=== PATIENT | male | born 1995 | race Caucasian/White ===

== ENCOUNTER 2021-05-01 16:17 | Emergency (ER) | payer BC, OTHER ==
[2021-05-01] MEDS ORDERED: Acetaminophen 325 MG Tab PO ONE (17:32)
[2021-05-01] MEDS ORDERED: Acetaminophen 500 MG Tab PO ONE (17:56)
--- NOTE | 2021-05-01 18:19 | EDM.PDOC ---
<Rey Greenfield - Last Filed: 05/02/21 06:52> ED HPI GENERAL MEDICAL PROBLEM - General Chief Complaint: Gastrointestinal Problem Stated Complaint: FEVER, CONGESTION, DIARRHEA Time Seen by Provider: 05/01/21 17:30 - History of Present Illness INITIAL COMMENTS - FREE TEXT/NARRATIVE: 6:52 AM: Signout received at 7 PM. 26-year-old gentleman who presents to the ER today with sinus symptoms consistent with Covid infection. Patient also appeared dehydrated clinically. Patient's labs had an elevated BUN and creatinine as well as a slightly elevated CPK. Patient was given 1 L of NSS and feels much improved. Patient was discharged home with Covid instructions and instructions to follow-up with his doctor for reevaluation within the next 2 to 3 days by phone. Reassessment at the time of disposition demonstrates that the patient is in no acute distress. The patient has remained stable throughout the entire ED visit and is without objective evidence for acute process requiring urgent intervention or hospitalization. The patient is stable for discharge, counseling is provided as documented above, discussed symptomatic treatment and specific conditions for return. I have spoken with the patient/caregiver and discussed todays findings, in addition to providing specific details for the plan of care. Questions are answered and there is agreement with the plan. - Related Data Allergies Allergy/AdvReac Type Severity Reaction Status Date / Time No Known Allergies Allergy Verified 05/01/21 17:08 Home Meds: Home Meds Ondansetron [Zofran ODT] 4 mg PO Q6H PRN #16 tab.dis 05/01/21 [Rx] Departure - Departure Disposition: Home, Self-Care 01 Clinical Impression: COVID, Dehydration - Discharge Information Prescriptions: Ondansetron [Zofran ODT] 4 mg PO Q6H PRN #16 tab.dis PRN Reason: Nausea Instructions: COVID-19 Frequently Asked Questions, 10 Things You Can Do to Manage Your COVID-19 Symptoms at Home - CDC, Dehydration, Adult, [id number], COVID-19: Quarantine vs. Isolation - CDC Referrals: PCP,None [Primary Care Provider] - Forms: ED Department Discharge Additional Instructions: Return for shortness of breath, inability to tolerate fluids, change or worsening condition or lack of improvement. Follow-up with primary care doctor 2 to 3 days for reevaluation as needed 1. Your COVID-19 screening is positive. That means you do have the coronavirus and you are considered contagious. Your vital signs and oxygen saturation are well enough that you were able to monitor your symptoms at home. Continue to monitor for trouble breathing, new confusion or inability to arouse, bluish lips or face or any of the other symptoms we discussed -if this occurs please return to the emergency room. 2. Please self quarantine over the next 10 days. Inform any persons that you have been in contact with since you started becoming symptomatic that you have tested positive; they should be made aware and take the appropriate steps as needed. 3. You can take NyQuil during the evening to help get a restful night sleep. May alternate Tylenol and ibuprofen as needed for pain and fever management. 4. The [facility] department will be calling you and following up with you. The [place] COVID 19 Hotline phone number , They are open Thursday - Thursday 7am - 7pm. Follow up with your primary care provider for re-evaluation and re-testing after the 10 day quarantine and discuss when you should be seen. The following information is given to patients seen in the emergency department who are being discharged to home. This information is to outline your options for follow-up care. We provide all patients seen in our emergency department with a follow-up referral. The need for follow-up, as well as the timing and circumstances, are variable depending upon the specifics of your emergency department visit. If you don't have a primary care physician on staff, we will provide you with a referral. We always advise you to contact your personal physician following an emergency department visit to inform them of the circumstance of the visit and for follow-up with them and/or the need for any referrals to a consulting specialist. The emergency department will also refer you to a specialist when appropriate. This referral assures that you have the opportunity for follow-up care with a specialist. All of these measure are taken in an effort to provide you with optimal care, which includes your follow-up. Under all circumstances we always encourage you to contact your private physician who remains a resource for coordinating your care. When calling for follow-up care, please make the office aware that this follow-up is from your recent emergency room visit. If for any reason you are refused follow-up, please contact the [facility] Emergency Department at and asked to speak to the emergency department charge nurse. [facility] - [facility] [address] [place] [id number] [facility] [address] [place] [address] <Jori Chang - Last Filed: 05/02/21 07:41> ED HPI GENERAL MEDICAL PROBLEM - History of Present Illness INITIAL COMMENTS - FREE TEXT/NARRATIVE: Patient presents to the emergency department with continued worsening of symptoms. Patient states yesterday he was tested positive for Covid. He has fevers and headache and vomiting and diarrhea and congestion plus or minus shortness of breath. Patient also states that he thinks over this past weekend he had heatstroke. He states he was outside working more than 12 hours a day and 1 day and 8 hours a day the next day in the 104 degree weather. Patient has moderate symptoms without exacerbating or alleviating factors. Chest Pain Score (Numeric/FACES): 3 Past Medical History - Past Health History Medical/Surgical History: Denies Medical/Surgical History - Infectious Disease History Infectious Disease History: Reports: None Social & Family History - Family History Family Medical History: No Pertinent Family History - Tobacco Use Tobacco Use Status *Q: Never Tobacco User - Caffeine Use Caffeine Use: Reports: None - Recreational Drug Use Recreational Drug Use: No ED ROS GENERAL - Review of Systems Review Of Systems: Comprehensive ROS is negative, except as noted in HPI. ED EXAM, GENERAL - Physical Exam Exam: See Below Free Text/Narrative:: CONSTITUTIONAL: well appearing in no acute distress SKIN: Warm, dry, and intact without rash HENT: Normocephalic, atraumatic, PULMONARY: clear to ausculation bilaterally. No rales, rhonchi, wheezing CARDIOVASCULAR: regular rate, No murmur, rubs, or gallops GASTROINTESTINAL: soft, nondistended, nontender NEUROLOGIC: normal speech, II-XII intact. light touch/5/5 power equal and symmetric in upper and lower extremities without deficit MUSCULOSKELETAL: no gross deformities, atraumatic PSYCHIATRIC: normal mood and affect Course - Vital Signs Text/Narrative:: Patient presents as outlined above in the status of Covid infection. Patient does describe significant heat related illness thus blood draw was done to look for evidence of any significant renal insufficiency or endorgan dysfunction as it could relate to his heat exposure. If this is significant he may need IV fluids and/or other intervention. GUANAKITO Greenfield 7pm Last Recorded V/S: Last Vital Signs Temp 37.2 C 05/01/21 20:20 Pulse 83 05/01/21 19:22 Resp 18 05/01/21 20:20 BP 110/78 05/01/21 20:20 Pulse Ox 97 05/01/21 20:20 - Orders/Labs/Meds Labs: Laboratory Tests 05/01/21 05/01/21 Range/Units 18:38 18:38 WBC 7.92 (4.0-11.0) K/uL RBC 4.70 (4.50-5.90) M/uL Hgb 14.6 (13.0-17.0) g/dL Hct 41.3 (38.0-50.0) % MCV 87.9 (80.0-98.0) fL MCH 31.1 (27.0-32.0) pg MCHC 35.4 (31.0-37.0) g/dL RDW Std Deviation 38.6 (28.0-62.0) fl RDW Coeff of Kaylah 12 (11.0-15.0) % Plt Count 139 L (150-400) K/uL MPV 11.00 (7.40-12.00) fL Neut % (Auto) 77.6 (48.0-80.0) % Lymph % (Auto) 16.0 (16.0-40.0) % [place] % (Auto) 6.3 (0.0-15.0) % Eos % (Auto) 0.0 (0.0-7.0) % Baso % (Auto) 0.1 (0.0-1.5) % Neut # (Auto) 6.1 H (1.4-5.7) K/uL Lymph # (Auto) 1.3 (0.6-2.4) K/uL [place] # (Auto) 0.5 (0.0-0.8) K/uL Eos # (Auto) 0.0 (0.0-0.7) K/uL Baso # (Auto) 0.0 (0.0-0.1) K/uL Nucleated RBC % 0.0 /100WBC Nucleated RBCs # 0 K/uL Sodium 135 L (136-148) mmol/L Potassium 3.8 (3.5-5.1) mmol/L Chloride 99 (98-107) mmol/L Carbon Dioxide 25.2 (21.0-32.0) mmol/L BUN 20 H (7.0-18.0) mg/dL Creatinine 1.5 H (0.8-1.3) mg/dL Est Cr Clr Drug Dosing 103.11 mL/min Estimated GFR (MDRD) 57.5 ml/min Glucose 102 (74-106) mg/dL Calcium 7.8 L (8.5-10.1) mg/dL Total Bilirubin 1.0 (0.2-1.0) mg/dL AST 41 H (15-37) IU/L ALT 41 (14-63) IU/L Alkaline Phosphatase 63 (46-116) U/L Creatine Kinase 567 H (26-308) U/L Total Protein 7.4 (6.4-8.2) g/dL Albumin 3.6 (3.4-5.0) g/dL Globulin 3.8 (2.6-4.0) g/dL Albumin/Globulin Ratio 0.9 (0.9-1.6) Meds: Medications Discontinued Medications Generic Name Dose Route Start Last Admin Trade Name Freq PRN Reason Stop Dose Admin Acetaminophen 1,000 mg 05/01/21 17:32 05/01/21 18:11 Acetaminophen 325 Mg Tab PO 05/01/21 17:33 Not Given NOW ONE Acetaminophen 1,000 mg 05/01/21 17:56 05/01/21 18:01 Acetaminophen 500 Mg Tab PO 05/01/21 17:57 1,000 mg ONETIME ONE Administration Sodium Chloride 1,000 mls @ 999 mls/hr 05/01/21 19:30 05/01/21 19:40 Normal Saline IV 05/01/21 20:30 999 mls/hr .Bolus ONE Administration Ondansetron HCl 4 mg 05/01/21 19:36 05/01/21 19:40 Ondansetron 4 Mg/2 Ml Sdv IVPUSH 05/01/21 19:37 4 mg ONETIME ONE Administration Departure - Departure Time of Disposition: 19:00 Condition: Good Sepsis Event Note (ED) - Evaluation Sepsis Screening Result: Possible Severe Sepsis Risk - Focused Exam Vital Signs: Vital Signs Temp Resp BP Pulse Ox 05/01/21 20:20 37.2 C 18 110/78 97
[2021-05-01 19:08] LABS: CARBON DIOXIDE,CO2 25.2 mmol/L (21.0-32.0); POTASSIUM,K 3.8 mmol/L (3.5-5.1)
[2021-05-01] MEDS ORDERED: Sodium Chloride 0.9% 1,000 ML IV ONE (19:30)
[2021-05-01] MEDS ORDERED: Ondansetron 4 MG/2 ML SDV IVPUSH ONE (19:36)
== END 2021-05-01 20:20 | disposition home or self-care (01) ==
LOC: MW.ED 16:17
DX: U07.1 COVID-19 (principal); E86.0 Dehydration
CPT/HCPCS: 36415; 80053; 82550; 85025; 96374; 99284; A9270; J2405; J7030